=== PATIENT | female | born 1965 | race Caucasian/White ===

== ENCOUNTER 2017-12-21 20:26 | Emergency (ER) | payer OTHER ==
--- NOTE | 2017-12-21 20:41 | EDPHY ---
H & P Stated Complaint: Back pain, from scapula to chest Time Seen by Provider: 12/21/17 20:40 HPI/ROS: CHIEF COMPLAINT: Intrascapular pain HISTORY OF PRESENT ILLNESS: The patient presents to the ED with complaints of intrascapular pain which began earlier today. The patient has a history of a femoral artery dissection in 2009. Given her history she was referred to the ED for further evaluation. The patient reports she had similar nerve type pain prior to the development of shingles several years ago. She has not had any recurrent rash with this episode of pain. Patient denies any history of fall or trauma. She does report some vague lightheadedness and dizziness with her symptoms. She denies any focal numbness or weakness. REVIEW OF SYSTEMS: A comprehensive 10 point review of systems is otherwise negative aside from elements mentioned in the history of present illness. Source: Patient Exam Limitations: No limitations - Personal History LMP (Females 10-55): Post Menopausal Current Tetanus Diphtheria and Acellular Pertussis (TDAP): Yes Tetanus Vaccine Date: jul 2007 - Medical/Surgical History Hx Asthma: No Hx Chronic Respiratory Disease: No Hx Diabetes: No Hx Cardiac Disease: No Hx Renal Disease: No Hx Cirrhosis: No Hx Alcoholism: No Hx HIV/AIDS: No Hx Splenectomy or Spleen Trauma: No Other PMH: HYPOTHYROIDISM, HTN, BENIGN PITUITARY TUMORS, femoral artery dissection - Social History Smoking Status: Never smoked - Physical Exam Exam: General Appearance: Alert, no distress Eyes: Pupils equal and round no pallor or injection ENT, Mouth: Mucous membranes moist Respiratory: There are no retractions, lungs are clear to auscultation Cardiovascular: Regular rate and rhythm Gastrointestinal: Abdomen is soft and nontender, no masses, bowel sounds normal Neurological: A&O, normal motor function, normal sensory exam, normal cranial nerves Skin: Warm and dry, no rashes Musculoskeletal: Neck is supple nontender Extremities: symmetrical, full range of motion Constitutional: Initial Vital Signs Temperature (C) 36.8 C 12/21/17 20:37 Heart Rate 70 12/21/17 20:37 Respiratory Rate 20 12/21/17 20:37 Blood Pressure 135/95 H 12/21/17 20:37 O2 Sat (%) 98 12/21/17 20:37 O2 Delivery Mode Room Air Allergies/Adverse Reactions: bupropion HCl [From Wellbutrin] Allergy (Unknown, Verified 12/21/17 20:37) Sulfa (Sulfonamide Antibiotics) Allergy (Unknown, Verified 12/21/17 20:37) Home Medications: Medication Instructions Recorded Levothyroxine [Levothroid] 75 mcg PO DAILY 01/22/11 Lisinopril [Zestril 20 mg (*)] 20 mg PO DAILY 01/22/11 Ketoconazole [Nizoral A-D] 125 ml TP 05/10/14 Norethindrone AC-Eth Estradiol 1 each PO 05/10/14 [] Medical Decision Making - Diagnostics EKG Interpretation: EKG: Complete interpretation has been separately recorded in the [facility] archive. Summary impression: Sinus rhythm, rate 61. Unchanged from prior EKG dated January 2011 Imaging Results: Imaging Impressions Chest/Thorax CTA 12/21/17 20:55 Impression: 1. Negative for aortic dissection or aneurysmal dilatation. 2. See above report for additional findings. Results called and discussed with Abel Pinto M.D., on December 21, 2017 at 2132. ED Course/Re-evaluation: The patient presents to the ED with atraumatic intrascapular thoracic pain. Given her history of femoral artery dissection she had an IV established and a normal i-STAT was obtained. The patient was taken for emergent angiogram of her chest to exclude the possibility of aortic dissection. Fortunately this study demonstrates a normal aorta and no evidence of thromboembolic disease. Additional workup included a nonischemic EKG and a negative troponin. The patient does report similar symptoms prior to developing shingles several years ago. She currently has no obvious vesicular rash. The patient was observed in the emergency department for several hours without vital sign instability or worsening symptoms. At this point time I feel we have excluded dissection, acute coronary syndrome, arrhythmia or other intrathoracic abnormality. The patient will be discharged home with instructions to follow up with her primary care provider for any persistent symptoms, the development of rash or other concerns. The patient is given customary return precautions. Differential Diagnosis: Differential diagnosis considered includes aortic dissection, pulmonary embolism , acute coronary syndrome, pericarditis, pneumothorax, zoster - Data Points Laboratory Results: Laboratory Results 12/21/17 20:52 12/21/17 20:52 12/21/17 12/21/17 12/21/17 20:54 20:52 20:52 WBC RBC Hgb POC Hgb 15.3 gm/dL gm/dL (12.6-16.3) Hct POC Hct 45 % % (38-47) MCV MCH MCHC RDW Plt Count MPV Neut % (Auto) Lymph % (Auto) [place] % (Auto) Eos % (Auto) Baso % (Auto) Nucleat RBC Rel Count Absolute Neuts (auto) Absolute Lymphs (auto) Absolute Monos (auto) Absolute Eos (auto) Absolute Basos (auto) Absolute Nucleated RBC Immature Gran % Immature Gran # PT 12.6 SEC SEC (12.0-15.0) INR 0.92 (0.83-1.16) APTT 27.8 SEC SEC (23.0-38.0) POC Sodium 143 mEq/L mEq/L (135-145) Sodium 140 mEq/L mEq/L (135-145) POC Potassium 3.9 mEq/L mEq/L (3.3-5.0) Potassium 4.4 mEq/L mEq/L (3.5-5.2) POC Chloride 103 mEq/L mEq/L (97-110) Chloride 102 mEq/L mEq/L (97-110) Carbon Dioxide 25 mEq/l mEq/l (22-31) Anion Gap 13 mEq/L mEq/L (8-16) POC BUN 16 mg/dL mg/dL (7-23) BUN 15 mg/dL mg/dL (7-23) Creatinine 0.7 mg/dL mg/dL (0.6-1.0) POC Creatinine 0.6 mg/dL mg/dL (0.6-1.0) Estimated GFR > 60 Glucose 101 mg/dL H mg/dL (70-100) POC Glucose 109 mg/dL H mg/dL (70-100) Calcium 9.8 mg/dL mg/dL (8.5-10.4) Troponin I < 0.012 ng/mL ng/mL (0.000-0.034) 12/21/17 20:52 WBC 12.88 10^3/uL H 10^3/uL (3.80-9.50) RBC 4.99 10^6/uL 10^6/uL (4.18-5.33) Hgb 13.9 g/dL g/dL (12.6-16.3) POC Hgb Hct 43.6 % % (38.0-47.0) POC Hct MCV 87.4 fL fL (81.5-99.8) MCH 27.9 pg pg (27.9-34.1) MCHC 31.9 g/dL L g/dL (32.4-36.7) RDW 14.5 % % (11.5-15.2) Plt Count 310 10^3/uL 10^3/uL (150-400) MPV 10.1 fL fL (8.7-11.7) Neut % (Auto) 58.8 % % (39.3-74.2) Lymph % (Auto) 32.8 % % (15.0-45.0) [place] % (Auto) 6.2 % % (4.5-13.0) Eos % (Auto) 1.3 % % (0.6-7.6) Baso % (Auto) 0.5 % % (0.3-1.7) Nucleat RBC Rel Count 0.0 % % (0.0-0.2) Absolute Neuts (auto) 7.58 10^3/uL H 10^3/uL (1.70-6.50) Absolute Lymphs (auto) 4.22 10^3/uL H 10^3/uL (1.00-3.00) Absolute Monos (auto) 0.80 10^3/uL 10^3/uL (0.30-0.80) Absolute Eos (auto) 0.17 10^3/uL 10^3/uL (0.03-0.40) Absolute Basos (auto) 0.06 10^3/uL 10^3/uL (0.02-0.10) Absolute Nucleated RBC 0.00 10^3/uL 10^3/uL (0-0.01) Immature Gran % 0.4 % % (0.0-1.1) Immature Gran # 0.05 10^3/uL 10^3/uL (0.00-0.10) PT INR APTT POC Sodium Sodium POC Potassium Potassium POC Chloride Chloride Carbon Dioxide Anion Gap POC BUN BUN Creatinine POC Creatinine Estimated GFR Glucose POC Glucose Calcium Troponin I Point of Care Test Results: 12/21/17 20:54 POC Sodium 143 POC Potassium 3.9 POC Chloride 103 POC BUN 16 POC Creatinine 0.6 POC Glucose 109 H Departure - Departure Disposition: Home, Routine, Self-Care Clinical Impression: Back pain Condition: Good Instructions: Musculoskeletal Pain (ED) Additional Instructions: 1. Your CT scan, EKG and laboratory testing are within normal limits. 2. Take Ibuprofen or Motrin 600 mg by mouth three times a day. 3. Please schedule a follow-up appointment with your primary care provider for any ongoing mild symptoms. Please seek care if you developed any rash on her chest or back. 4. Please return to the ED for markedly worsening symptoms, difficulty breathing or other concerns. Referrals: Elva Valente MD [Primary Care Provider] - As per Instructions
[2017-12-21 21:00] LABS: PLATELET COUNT 310 10^3/uL (150-400)
[2017-12-21] MEDS ORDERED: IOPAMIDOL (ISOVUE 370) 100 ML BTL IV ONE (21:01)
--- NOTE | 2017-12-21 21:02 | CPEKG ---
Heart Rate: 61 RR Interval: 984 P-R Interval: 204 QRSD Interval: 110 QT Interval: 440 QTC Interval: 444 P [place]: 48 QRS [place]: 19 T Wave [place]: 54 EKG Severity - ABNORMAL ECG - EKG Impression: SINUS RHYTHM Electronically Signed By: Abel Pinto 21-Dec-2017 21:04:57
[2017-12-21 21:09] LABS: INR 0.92 (0.83-1.16); PROTIME(PATIENT) 12.6 SEC (12.0-15.0)
[2017-12-21 21:26] VITALS: PULSE 66; RESP 18
[2017-12-21 21:58] VITALS: O2SAT 97
[2017-12-21 22:43] VITALS: BP 131/94; TEMP 97.7
== END 2017-12-21 22:46 | disposition home or self-care (01) ==
DX: M54.9 Dorsalgia, unspecified (principal); I10 Essential (primary) hypertension
CPT/HCPCS: 82947-QW; Q9967

== ENCOUNTER 2018-09-15 12:16 | Emergency (ER) | payer OTHER ==
--- NOTE | 2018-09-15 14:00 | EDPHY ---
H & P Stated Complaint: nausea/vomiting/diarrhea Time Seen by Provider: 09/15/18 13:58 HPI/ROS: HPI: This is a 53-year-old female who presents with Chief Complaint: nausea/vomiting/diarrhea Location: GI Quality: Nausea, vomiting, diarrhea Duration: Since 10:00 p.m. Signs and Symptoms: no fever,+ nausea, + vomiting, no hematemesis, no blood in stool, no abdominal bloating, + diarrhea, no back pain, no urinary symptoms, no vaginal bleeding/discharge, no indigestion, no chest pain, no shortness of breath Timing: Acute, intermittent episodes Severity: Moderate Context: Patient works as a academic dean at [employer] presents with sudden onset of nausea and vomiting that started last night around 10:00 p.m. Several hours later she developed diarrhea. She reports now she has not vomited since 6:00 a.m. She called her primary care provider as she believes that she just needs IV fluids. Primary care provider director to the emergency room. She reports that initially she had abdominal cramping and pain but that has since resolved. Patient is postmenopausal. She ate chicken stir diego at a friend's house around 7:00 p.m. No recent foreign travel. Patient has not vomited in over 4 hr. She complains that she just feels tired Modifying Factors: None Comment: ROS: A comprehensive 10 system review of systems is otherwise negative aside from elements mentioned in the history of present illness. MEDICAL/SURGICAL/SOCIAL HISTORY: Medical history: HYPOTHYROIDISM, HTN, BENIGN PITUITARY TUMORS, femoral artery dissection. Postmenopausal. Surgical history: Denies Social history: Never smoked. Family history noncontributory. CONSTITUTIONAL: Nontoxic-appearing middle-aged white female, awake and alert, no obvious distress HEENT: Atraumatic and normocephalic, PERRL, EOMI. Nares patent; no rhinorrhea; no nasal mucosal edema. Tympanic membranes clear. Oropharynx clear, no exudate and moist pink mucosa. Airway patent. No lymphadenopathy. No meningismus. Cardiovascular: Normal S1/S2, regular rate, regular rhythm, without murmur rub or gallop. PULMONARY/CHEST: Symmetrical and nontender. Clear to auscultation bilaterally. Good air movement. No accessory muscle usage. ABDOMEN: Soft, nondistended, nontender, no rebound, no guarding, no peritoneal signs, no masses or organomegaly. No CVAT. EXTREMITIES: 2/2 pulses, strength 5/5, no deformities, no clubbing, no cyanosis or edema. NEUROLOGICAL: no focal neuro deficits. GCS 15. SKIN: Warm and dry, no erythema. no rash. Good capillary refill. Source: Patient Exam Limitations: No limitations - Personal History LMP (Females 10-55): Post Menopausal Current Tetanus/Diphtheria Vaccine: Yes Current Tetanus Diphtheria and Acellular Pertussis (TDAP): Yes Tetanus Vaccine Date: jul 2007 - Medical/Surgical History Hx Asthma: No Hx Chronic Respiratory Disease: No Hx Diabetes: No Hx Cardiac Disease: No Hx Renal Disease: No Hx Cirrhosis: No Hx Alcoholism: No Hx HIV/AIDS: No Hx Splenectomy or Spleen Trauma: No Other PMH: HYPOTHYROIDISM, HTN, BENIGN PITUITARY TUMORS, femoral artery dissection - Social History Smoking Status: Never smoked Constitutional: Initial Vital Signs Temperature (C) 36.9 C 09/15/18 12:18 Heart Rate 85 09/15/18 12:18 Respiratory Rate 16 09/15/18 12:18 Blood Pressure 111/79 09/15/18 12:18 O2 Sat (%) 94 09/15/18 12:18 O2 Delivery Mode Room Air Allergies/Adverse Reactions: bupropion HCl [From Wellbutrin] Allergy (Unknown, Verified 12/21/17 20:37) Sulfa (Sulfonamide Antibiotics) Allergy (Unknown, Verified 12/21/17 20:37) Home Medications: Medication Instructions Recorded Levothyroxine [Levothroid] 75 mcg PO DAILY 01/22/11 Lisinopril [Zestril 20 mg (*)] 20 mg PO DAILY 01/22/11 Norethindrone AC-Eth Estradiol 1 each PO 05/10/14 [Junel] Ondansetron Odt [Zofran Odt 4 mg 4 mg PO Q4 PRN #12 tab 09/15/18 (*)] Medical Decision Making ED Course/Re-evaluation: Vital signs reviewed and stable upon arrival. No systemic signs. IV access and laboratory studies obtain Given 2 L normal saline. Patient politely declined any anti emetics The patient's abdomen soft and nontender and I doubt surgical process or need for imaging. 1457: Labs reviewed. No signs of KEITH/elevated LFTs/electrolyte imbalance/ pancreatitis. This patient was seen under the supervision of my secondary supervising physician. I evaluated care for this patient independently. Discussed this patient with Dr. Howard who did not see the patient. Differential Diagnosis: Abdominal pain including but not limited to appendicitis, cholecystitis, gastritis and urinary tract infection. - Data Points Laboratory Results: Laboratory Results 09/15/18 14:25 Medications Given: Discontinued Medications Sodium Chloride (Ns) 1,000 mls @ 0 mls/hr IV EDNOW ONE; Wide Open PRN Reason: Protocol Stop: 09/15/18 14:08 Last Admin: 09/15/18 14:36 Dose: 1,000 mls Sodium Chloride (Ns) 1,000 mls @ 0 mls/hr IV EDNOW ONE; Wide Open PRN Reason: Protocol Stop: 09/15/18 14:08 Last Admin: 09/15/18 14:36 Dose: 1,000 mls Departure - Departure Disposition: Home, Routine, Self-Care Clinical Impression: Gastroenteritis Condition: Good Instructions: Gastroenteritis (ED) Additional Instructions: Consume a minimum of 8-10 glasses of water or electrolyte fluid replacement drinks that include Gatorade, Powerade, Pedialyte. Eat a bland diet for the next 48 hours and then slowly advance as tolerated. Take Zofran 1 tab every 4 hours as needed for nausea, vomiting. Return to the Emergency Room if symptoms do not resolve in the next 48-72 hours , you spike a fever > 102 F, or experience intractable abdominal pain/nausea/ vomiting. Referrals: Elva Valente MD [Primary Care Provider] - As per Instructions Prescriptions: Ondansetron Odt [Zofran Odt 4 mg (*)] 4 mg PO Q4 PRN #12 tab PRN Reason: Nausea/Vomiting, Use 1st
[2018-09-15] MEDS ORDERED: NS 1,000 ML IV ONE ×2 (14:07)
[2018-09-15 16:02] VITALS: BP 118/74
== END 2018-09-15 16:02 | disposition home or self-care (01) ==
DX: K52.9 Noninfective gastroenteritis and colitis, unspecified (principal)